=== PATIENT | female | born 1990 | race Caucasian/White ===

== ENCOUNTER 2017-10-31 13:59 | Emergency (ER) | payer MEDICAID ==
[2017-10-31 14:37] VITALS: BP 107/70
--- NOTE | 2017-10-31 15:24 | UC ---
Respiratory Complaint HPI - HPI Summary HPI Summary: Patient presents with an unremarkable past medical history. She presents today with five day onset complaints of generalized fatigue, malaise, headache, feve, chills, cough, chest congestion, muscle and joint pain. She denies any chest pain, abdominal pain, nausea, vomiting, and or diarrhea. She states she was exposed to another family member who had the flu. - History of Current Complaint Chief Complaint: UCRespiratory Stated Complaint: FEVER AND CHILLS Time Seen by Provider: 10/31/17 14:38 Hx Obtained From: Patient Hx Last Menstrual Period: 10/31/17 Onset/Duration: Sudden Onset, Lasting Days Timing: Constant Character: Cough: Productive Aggravating Factors: Exertion, Deep Breaths, Recumbent Position Alleviating Factors: OTC Meds, Upright Position, Spontaneous Resolution Associated Signs And Symptoms: Positive: Fever, Chills, URI, Nasal Congestion, Sinus Discomfort - Risk Factors Pulmonary Embolism Risk Factors: Negative Cardiac Risk Factors: Negative Pseudomonas Risk Factors: Negative Tuberculosis Risk Factors: Negative - Allergies/Home Medications Allergies/Adverse Reactions: Allergies Allergy/AdvReac Type Severity Reaction Status Date / Time No Known Allergies Allergy Verified 10/31/17 14:37 Home Medications: Home Medications NK [No Home Medications Reported] 10/31/17 [History Confirmed 10/31/17] PMH/Surg Hx/FS Hx/Imm Hx Previously Healthy: Yes - Surgical History Surgical History: Yes Surgery Procedure, Year, and Place: tonsillectomy - Family History Known Family History: Positive: Cardiac Disease, Hypertension, Diabetes - Social History Lives: With Family Alcohol Use: None Substance Use Type: None Smoking Status (MU): Light Every Day Tobacco Smoker Have You Smoked in the Last Year: Yes Review of Systems Constitutional: Fever, Chills, Fatigue Skin: Negative Eyes: Negative ENT: Sore Throat, Nasal Discharge, Sinus Congestion Respiratory: Cough Cardiovascular: Negative Gastrointestinal: Negative Genitourinary: Negative Motor: Negative Neurovascular: Negative Musculoskeletal: Negative Neurological: Negative Psychological: Negative Is Patient Immunocompromised?: No All Other Systems Reviewed And Are Negative: Yes Physical Exam Triage Information Reviewed: Yes Appearance: Well-Appearing Vital Signs: Initial Vital Signs Temp 99 F 10/31/17 14:34 Pulse 99 10/31/17 14:34 Resp 18 10/31/17 14:34 BP 107/70 10/31/17 14:34 Pulse Ox 100 12/26/17 14:34 Vital Signs Reviewed: Yes Eye Exam: Normal ENT Exam: Normal ENT: Positive: Pharynx normal Neck exam: Normal Neck: Positive: 1 Respiratory Exam: Normal Respiratory: Positive: No respiratory distress, No accessory muscle use, Rhonchi - occassional rhocus lung sounds. Cardiovascular Exam: Normal Abdominal Exam: Normal Skin Exam: Normal UC Diagnostic Evaluation - Laboratory O2 Sat by Pulse Oximetry: 100 Respiratory Course/Dx - Course Course Of Treatment: Patient present with a fivd day onset generalized illness as stated in HPI, influenze was positive for "A". She is outside the window for treatment, and at this point in time I recommend increase fluids, tyelnol and or advil, rest and monitor for symtpom improvement. If for any reason her symptoms worsen she was told to follow up with her PCP or go t oER. She had a nontoxic appearance, in no obvious distress and discharge home in stable condition. - Differential Dx/Diagnosis Differential Diagnosis/HQI/PQRI: Influenza Provider Diagnoses: influenza Discharge - Discharge Plan Condition: Stable Disposition: HOME Patient Education Materials: Influenza (ED) Referrals: Rajan Dukes MD [Primary Care Provider] -
--- NOTE | 2017-10-31 15:33 | RAD ---
INDICATION: 5 days cough. Fever and chills. History of tobacco use. COMPARISON: No relevant prior exams available on the [facility] PACS for comparison. TECHNIQUE: Dual energy PA and routine lateral views of the chest were obtained. REPORT: Clear lungs and pleural spaces. Negative for pneumothorax. The heart, pulmonary vasculature, and mediastinal contours are unremarkable. Unremarkable osseous structures and soft tissue contours. IMPRESSION: No evidence for pneumonia. Negative exam.
== END 2017-10-31 15:35 | disposition home or self-care (01) ==
LOC: UCEAST 13:59
DX: J11.1 Influenza due to unidentified influenza virus with other respiratory manifestations (principal); Z72.0 Tobacco use
CPT/HCPCS: 71020; 87502; 99211; G0463

== ENCOUNTER 2021-03-07 18:08 | Inpatient (IN) ==
[2021-03-07] MEDS ORDERED: Betamethasone 6 mg/ml 5 ml VIAL IM ONE (19:00)
[2021-03-07] MEDS ORDERED: Lidocaine 2.5%/Prilocain 2.5% 5 GM TUBE ONE (20:39)
[2021-03-07] MEDS ORDERED: Lactated Ringers 1000 ml BAG 1,000 ML IV ONE (21:02)
[2021-03-07] MEDS ORDERED: Buffered Lidocaine 1% SYRIN 1 ml INTRADERM ONE (21:02)
[2021-03-07] MEDS ORDERED: Penicillin G Potassium IV 5,000,000 UNITS in NS 0.9% 100 ml BAG 100 ML IVPB ONE (21:28)
[2021-03-07] MEDS ORDERED: Lactated Ringers 1000 ml BAG 1,000 ML IV SCH (22:00)
[2021-03-07 22:40] LABS: ABS Basophils 0.1 10^3/ul (0-0.2); ABS Eosinophils 0.1 10^3/ul (0-0.6); ABS Monocytes 0.3 10^3/ul (0-0.8); ABS Neutrophils 13.7 10^3/ul (1.5-7.7); Eosinophil % 0.4 %; Hematocrit 34 % (35-47); Hemoglobin 11.7 g/dL (12.0-16.0); Lymphocyte % 6.7 %; Mean Corpuscular HGB Conc 35 g/dL (31-36); Mean Corpuscular Hemoglobin 34 pg (27-31); Mean Corpuscular Volume 97 fL (80-97); Mean Platelet Volume 8.4 fL (7.4-10.4); Platelet Count 252 10^3/uL (150-450); Red Blood Count 3.49 10^6 /uL (3.70-4.87); Red Cell Distribution Width 13 % (10-15); White Blood Count 15.1 10^3/uL (3.5-10.8)
[2021-03-07 22:50] LABS: Urine Benzodiazepine Screen None Detected (None Detect); Urine Cannabinoids Screen None Detected (None Detect); Urine Opiates Screen None Detected (None Detect)
[2021-03-08] MEDS: Penicillin G Potassium IV 3,000,000 UNITS in NS 0.9% 100 ml BAG 100 ML IVPB SCH ×6 (02:48→23:07)
[2021-03-08] MEDS ORDERED: Betamethasone 6 mg/ml 5 ml VIAL IM ONE (21:00)
[2021-03-09] MEDS: Penicillin G Potassium IV 3,000,000 UNITS in NS 0.9% 100 ml BAG 100 ML IVPB SCH ×2 (03:16→07:09)
[2021-03-09] MEDS: Penicillin G Potassium IV 3,000,000 UNITS in NS 0.9% 100 ML IVPB SCH ×4 (11:11→23:24)
[2021-03-10] MEDS ORDERED: Calcium Carb (TUMS) 500 mg CHEW TAB PO PRN (01:03)
[2021-03-10] MEDS: Penicillin G Potassium IV 3,000,000 UNITS in NS 0.9% 100 ML IVPB SCH ×6 (03:27→23:50)
[2021-03-10] MEDS ORDERED: Oxytocin in LR 20 UNITS/1,000 ML BAG IVPB SCH (10:00)
[2021-03-10] MEDS ORDERED: Dinoprostone 10 MG VAG.SUPP VAGINAL ONE (21:30)
[2021-03-11] MEDS: Penicillin G Potassium IV 3,000,000 UNITS in NS 0.9% 100 ML IVPB SCH ×3 (03:30→11:18)
[2021-03-11] MEDS ORDERED: ceFOXitin 2 GM IVPREMIX 2 GM/50 ML BAG ONE (14:57)
[2021-03-11] MEDS ORDERED: Sodium Citrate/Citric Acid LIQ 15 ML UDC ONE (14:57)
[2021-03-11 15:24] LABS: ABS Basophils 0.1 10^3/ul (0-0.2); ABS Eosinophils 0.1 10^3/ul (0-0.6); ABS Monocytes 0.8 10^3/ul (0-0.8); ABS Neutrophils 10.3 10^3/ul (1.5-7.7); Hematocrit 33 % (35-47); Hemoglobin 11.7 g/dL (12.0-16.0); Lymphocyte % 15.3 %; Mean Corpuscular HGB Conc 35 g/dL (31-36); Mean Corpuscular Hemoglobin 34 pg (27-31); Mean Corpuscular Volume 98 fL (80-97); Mean Platelet Volume 8.7 fL (7.4-10.4); Platelet Count 258 10^3/uL (150-450); Red Cell Distribution Width 14 % (10-15); White Blood Count 13.2 10^3/uL (3.5-10.8)
[2021-03-11] MEDS ORDERED: ceFOXitin 2 GM IVPREMIX 2 GM/50 ML BAG IVPB ONE (15:29)
[2021-03-11] MEDS ORDERED: fentaNYL 100 mcg/2 ml 50 MCG/ML VIAL ONE (15:55)
[2021-03-11] MEDS ORDERED: Morphine PF AMP (0.5MG/ML) 5 MG/10 ML AMP ONE (15:55)
[2021-03-11] MEDS ORDERED: Oxytocin 10 UNITS/ML 1 ML VIAL ONE ×2 (16:22→16:53)
[2021-03-11] MEDS ORDERED: Midazolam 2 mg/2 ml VIAL 1 mg/ml 2 ml VIAL (2 mg) ONE ×2 (16:27→16:48)
[2021-03-11] MEDS ORDERED: Ketamine HCL 50 mg/ml 10 ml VIAL (500 MG) ONE (16:27)
[2021-03-11] MEDS ORDERED: diPHENhydraMINE IV 50 MG/ML 1 ml VIAL (BENADRYL) IV PRN (16:49)
[2021-03-11] MEDS ORDERED: Ondansetron 4 mg VIAL 2 MG/ML 2 ml VIAL IV PRN (16:49)
[2021-03-11] MEDS ORDERED: Naloxone 0.4 mg VIAL 0.4 mg/ml 1 ml VIAL IV PRN (16:49)
[2021-03-11] MEDS ORDERED: Propofol 10 MG/ML 20 ML BTL ONE (17:15)
[2021-03-11] MEDS ORDERED: Tetan/Diph/Pertus SYR(Tdap) 0.5 ML SYR(BOOSTRIX) use SYR contains LATEX IM ONE (17:48)
[2021-03-11] MEDS ORDERED: Witch Hazel PAD JAR TOPICAL PRN (17:48)
[2021-03-11] MEDS ORDERED: Lactated Ringers 1000 ml BAG 1,000 ML IV SCH (18:00)
[2021-03-11 20:06] LABS: Urine Appearance Clear; Urine Bilirubin Negative (Negative); Urine Blood Negative (Negative); Urine Color Yellow; Urine Glucose Negative (Negative); Urine Ketones Negative (Negative); Urine Nitrite Negative (Negative); Urine Protein Negative (Negative); Urine Specific Gravity 1.013 (1.002-1.030); Urine Urobilinogen Negative (Negative)
[2021-03-12 07:31] LABS: ABS Eosinophils 0.1 10^3/ul (0-0.6); ABS Lymphocytes 1.2 10^3/ul (1.0-4.8); ABS Monocytes 0.6 10^3/ul (0-0.8); ABS Neutrophils 15.2 10^3/ul (1.5-7.7); Eosinophil % 0.8 %; Hematocrit 28 % (35-47); Hemoglobin 9.6 g/dL (12.0-16.0); Lymphocyte % 6.9 %; Mean Corpuscular HGB Conc 35 g/dL (31-36); Mean Corpuscular Hemoglobin 34 pg (27-31); Mean Corpuscular Volume 98 fL (80-97); Mean Platelet Volume 8.6 fL (7.4-10.4); Platelet Count 201 10^3/uL (150-450); Red Blood Count 2.82 10^6 /uL (3.70-4.87); Red Cell Distribution Width 13 % (10-15); White Blood Count 17.2 10^3/uL (3.5-10.8)
[2021-03-14] MEDS: Penicillin G Potassium IV 3,000,000 UNITS in NS 0.9% 100 ML IVPB SCH (07:19)
[2021-03-14 08:04] VITALS: BP 108/56
== END 2021-03-14 14:10 | disposition home or self-care (01) ==
LOC: MCHOBOUT 18:08 → MCHOB 19:08
PROVIDERS: ADMIT Obstetrics & Gynecology; ATTEND Obstetrics & Gynecology